=== PATIENT | male | born 1950 | race Caucasian/White ===

== ENCOUNTER 2019-02-22 12:38 | Outpatient (CLI) | payer MEDICARE, SELFPAY ==
--- NOTE | 2019-02-22 12:41 | DI.RAD.S_ITS ---
PROCEDURE: PAIN SI JOINT INJECTION INDICATIONS: JOINT DERANGEMENT FINDINGS: Fluoroscopic spot filming was performed to verify placement of spinal needles at the right SI joint level(s), as labeled on the films. Appropriate location(s) of the needle tip(s) was confirmed by injection of iodinated contrast. IMPRESSION: Fluoroscopy for pain management. Dictated by: Mica Grimaldo M.D. on 02/22/2019 at 13:45 Approved by: Mica Grimaldo M.D. on 02/22/2019 at 13:46
[2019-02-22 12:48] VITALS: BP 142/88; PULSE 65; RESP 16; TEMP 36.4; O2SAT 99
[2019-02-22 13:09] VITALS: BP 156/87; PULSE 70; RESP 18; O2SAT 100
[2019-02-22] MEDS: IOPAMIDOL 15 ML VIAL 3 ML INJ (13:09)
[2019-02-22] MEDS: BETAMETHASONE 30 MG/5 ML MDV 12 MG INJ (13:09)
[2019-02-22] MEDS: BUPIVACAINE 0.5% (PF) VIAL 2 ML INJ (13:09)
[2019-02-22 13:14] VITALS: BP 160/81; RESP 16; O2SAT 100
--- NOTE | 2019-02-22 13:23 | P.PCN_ITS ---
Procedures Date/Time Date of procedure: 02/22/19 Time of procedure: 13:24 General Procedure description: PREOP Dx: Sacroiliac joint pain/DJD POST OP DX: Sacroiliac Joint Pain/DJD Procedures: Fluoroscopic guided contrast controlled right sacroiliac joint injection Physician: Morgan Buck D.O. Indications: Genaro is referred by Dr. Todd for treatment of right sacroiliac joint DJD Description of procedure Fluoroscopic guided, contrast controlled right sacroiliac joint injection Following review of allergies and review of potential side effects and complications, including, but not necessarily limited to, infection, allergic reaction, local tissue breakdown, temporary as well as permanent nerve injury, paralysis, stroke and possible , the patient indicated that they understood and agreed to proceed. An informed consent was signed by the patient, witnessed by a nurse, and placed in the patient's chart. Additionally, other treatment options including modalities, medications, and physical therapy were reviewed with the patient. After review of previous anaesthesic history and IV conscious sedation the patient was deemed safe to proceed with todays procedure with IV conscious sedation as ASA class II designation. Safety time-out was performed to confirm patient ID, procedure to be performed and site of procedure. IV sedation was deemed unnecessary and thus not administered during the course of the procedure while the patient remained responsive to all verbal commands In the prone position following sterile prep and drape of the pelvic region, the hyper lucency on in the inferior aspect of the sacroiliac joint was identified fluoroscopically the skin was anesthetized be a 25 gauge 1 eventual with approximately 2 cc of 1% lidocaine solution. At this point, a 22 gauge 3 in spinal needle was atraumatically introduced and advanced under fluoroscopic guidance into the inferior aspect of the right sacroiliac joint. Following negative aspiration, approximately 0.3cc of Isovue-300 was injected confirming intra-articular placement without vascular uptake. Radiographic data, including multiple fluoroscopic views of the pelvis, reveals a spinal needle in the sacroiliac joint hyper lucent zone. Subsequent view show flow contrast tear superiorly and inferiorly within the joint capsule without vascular intrathecal uptake. At this point a total of 1cc or 0.5% Marcaine was combined with 1cc of 6mg of betamethasone was injected without incident. The procedure tolerated the procedure well without signs or symptoms of complications prior to transfer to the recovery area continued monitoring w ithout incident. The patient was then transferred to the recovery area with a bur observed for an appropriate time after the injection. The patient reverted a vas score of 7 prior to the procedure and postprocedure vas of 1. Total fluoroscopy time: 5.7 sec Total conscious sedation time: 0 min Postop instructions The patient was provided with a pain like to continue to record the patient's response to the target specific procedure prior to the patient's follow-up visit with the referring physician. Additionally, specific post injection care instructions and a contact number to our office were provided if concerns arise regarding the possible complications associated with procedure are suspected. Morgan Buck D.O. Complications: none
[2019-02-22 13:24] VITALS: BP 172/88; PULSE 73; RESP 16; O2SAT 100
[2019-02-22 13:29] VITALS: BP 152/80; PULSE 69; RESP 16; O2SAT 98
--- NOTE | 2019-02-22 13:31 | PC.NURSE ---
NO SEDATION MEDS GIVEN DURING PROCEDURE, PT A&OX4, VSS, AT BASELINE NEUROLOGICALLY, PHYSICALLY AND DENIES CONCERNS.
--- NOTE | 2019-02-22 14:08 | PC.NURSE ---
Post procedure transfer note: Late entry--Patient tolerated procedure well without sedation. VSS throughout. Able to sit up and transfer to /c without assistance. Handoff report given to Prudencio miguel RN. Pain level 0/10
== END 2019-02-22 13:32 | disposition home or self-care (01) ==
PROVIDERS: Family Provider Student in an Organized Health Care Education/Training Program; PCP Student in an Organized Health Care Education/Training Program; Visit Provider Physical Medicine & Rehabilitation
DX: M53.3 Sacrococcygeal disorders, not elsewhere classified (principal); M47.898 Other spondylosis, sacral and sacrococcygeal region
CPT/HCPCS: 27096; J0702

== ENCOUNTER → 2019-08-29 13:11 | Outpatient (CLI) | payer MEDICARE, SELFPAY ==
--- NOTE | 2019-08-29 13:14 | DI.RAD.S_ITS ---
PROCEDURE: XR KNEE RT 3V INDICATIONS: right knee pain TECHNIQUE: 3 views of the knee were acquired. COMPARISON: None. FINDINGS: Bones: No fractures or dislocations. There is a total right knee arthroplasty, showing no evidence of device loosening or disruption. No suspicious bony lesions. Soft tissues: No joint effusion. No suspicious soft tissue calcifications. IMPRESSION: Normal appearance of right total knee arthroplasty. Dictated by: Geovanni Carter M.D. on 08/29/2019 at 14:08 Approved by: Geovanni Carter M.D. on 08/29/2019 at 14:09
--- NOTE | 2019-08-29 19:33 | DI.NM.S_ITS ---
DATE OF SERVICE: 08/29/2019 PROCEDURE: Exercise stress test. INDICATION: Chest pain and shortness of breath. EXERCISE STRESS TEST: The patient walked on Joe protocol for 9 minutes 26 seconds, achieved 84 percent of target heart rate, normal blood pressure response, 10.1 METS of workload and functional aerobic impairment -24 percent. Baseline rhythm was sinus. During stress, there were no convincing ischemic changes. There was nonspecific upsloping ST depression. Around 7 minutes and 36 seconds into the exercise, the patient had six-beat runs of wide QRS tachycardia, which appears to be nonsustained ventricular tachycardia, rate about 150. Has some intermittent PVCs. In recovery, the patient developed PACs and some PVCs without any sustained ventricular tachycardia or supraventricular tachycardia. No chest pain or shortness of breath. CONCLUSION: Exercise stress test, which is mildly submaximal, as patient achieved 84 percent of target heart rate, negative for inducible ischemia. Normal hemodynamic response. Excellent exercise capacity. Functional aerobic impairment -26 percent. The patient has one six-beat run of nonsustained ventricular tachycardia, close to the peak exercise. In recovery, some premature atrial contractions, as well as some premature ventricular contractions, seen without any sustained ventricular tachycardia or supraventricular tachycardia. No anginal symptoms. Genaro Wilson - SYLVIA/prisca/vi doc#: [id number]/job#: [id number] dd: 08/29/2019 16:46:00 dt: 08/29/2019 19:25:00 DICTATING /COPIES TO: Rowan Marlow MD COPIES MNE: DWAINE;
== END ==
PROVIDERS: Family Provider Student in an Organized Health Care Education/Training Program; PCP Student in an Organized Health Care Education/Training Program; Referring Provider Student in an Organized Health Care Education/Training Program; Visit Provider Student in an Organized Health Care Education/Training Program
DX: R07.9 Chest pain, unspecified (principal); R06.02 Shortness of breath; R06.09 Other forms of dyspnea; M25.561 Pain in right knee; R26.9 Unspecified abnormalities of gait and mobility; Z96.651 Presence of right artificial knee joint
CPT/HCPCS: 73562; 93017

== ENCOUNTER → 2019-11-23 12:50 | Outpatient (CLI) | payer MEDICARE, SELFPAY ==
--- NOTE | 2019-11-23 12:53 | DI.RAD.S_ITS ---
PROCEDURE: XR SHOULDER RT MIN 2V INDICATIONS: right shoulder pain TECHNIQUE: 3 views of the shoulder were acquired. COMPARISON: None. FINDINGS: Bones: No fractures or dislocations. There are degenerative changes of the acromioclavicular joint and glenohumeral joint. Coracoclavicular and acromioclavicular intervals are maintained. Degenerative subchondral cysts noted over the right humeral head. No suspicious bony lesions. Visualized ribs appear intact. Soft tissues: No suspicious soft tissue calcifications. IMPRESSION: Right shoulder without acute fracture or malalignment. Mild degenerative changes of the right acromioclavicular and glenohumeral joints. Dictated by: Trey Ash M.D. on 11/23/2019 at 17:07 Approved by: Trey Ash M.D. on 11/23/2019 at 17:09
== END ==
PROVIDERS: Family Provider Student in an Organized Health Care Education/Training Program; PCP Student in an Organized Health Care Education/Training Program; Referring Provider Physical Medicine & Rehabilitation; Visit Provider Physical Medicine & Rehabilitation
DX: M19.011 Primary osteoarthritis, right shoulder (principal); M25.511 Pain in right shoulder; M65.30 Trigger finger, unspecified finger; M19.041 Primary osteoarthritis, right hand; Z96.651 Presence of right artificial knee joint
CPT/HCPCS: 20550; 73030; 99214; J3301

== ENCOUNTER → 2021-10-29 11:44 | Outpatient (CLI) | payer MEDICARE, SELFPAY | PROVIDERS: Family Provider Student in an Organized Health Care Education/Training Program; PCP Student in an Organized Health Care Education/Training Program; Referring Provider Ophthalmology; Visit Provider Ophthalmology | DX: H10.013 Acute follicular conjunctivitis, bilateral (principal) | CPT/HCPCS: 87070; 87205 ==

== ENCOUNTER → 2022-04-09 14:02 | Outpatient (CLI) | payer MEDICARE, SELFPAY ==
--- NOTE | 2022-04-09 14:07 | DI.RAD.S_ITS ---
PROCEDURE: XR SHOULDER RT MIN 2V INDICATIONS: Right shoulder impingement TECHNIQUE: 3 views of the shoulder were acquired. COMPARISON: [facility], CR, XR SHOULDER RT MIN 2V, 11/23/2019, 12:49. FINDINGS: Bones: No fractures or dislocations. No suspicious bony lesions. Mild degenerative changes are present at the acromioclavicular and glenohumeral joint. Degenerative changes are present at the insertion of the rotator cuff. Findings are unchanged from November 23, 2019. Visualized ribs appear intact. Soft tissues: No suspicious soft tissue calcifications. IMPRESSION: Mild degenerative change, stable. Dictated by: Aurora Elizabeth M.D. on 04/09/2022 at 15:05 Approved by: Aurora Elizabeth M.D. on 04/09/2022 at 15:05
== END ==
PROVIDERS: Family Provider Student in an Organized Health Care Education/Training Program; PCP Student in an Organized Health Care Education/Training Program; Referring Provider Physical Medicine & Rehabilitation; Visit Provider Physical Medicine & Rehabilitation
DX: M75.41 Impingement syndrome of right shoulder (principal); M65.331 Trigger finger, right middle finger
CPT/HCPCS: 20611; 73030; 99214; J1040

== ENCOUNTER → 2022-07-17 07:41 | Outpatient (CLI) | payer MEDICARE, SELFPAY ==
--- NOTE | 2022-07-17 | DI.NM.S_ITS ---
PROCEDURE: NM EXERCISE TREADMILL NON NUC COMPARISON: None. INDICATIONS: angina pectoris FINDINGS: Rest ECG sinus bradycardia 53 bpm. Joe protocol 3:54, maximum heart rate 93 bpm (63% of peak predicted), maximum blood pressure 160/84, 7.0 METS, KIMO +33%. Stress ECG sinus rhythm, no ST segment changes or arrhythmias. The patient did not complain of exercise-induced chest pain. He was unable to keep up with the treadmill due to leg fatigue prompting early termination. IMPRESSION: Equivocal test. No evidence of exercise-induced ischemia at submaximal heart rate. Normal hemodynamic response. Dictated by: Alisha Cheeam D.O. on 07/17/2022 at 16:55 Approved by: Alisha Cheema D.O. on 07/17/2022 at 16:58
== END ==
PROVIDERS: Family Provider Student in an Organized Health Care Education/Training Program; PCP Student in an Organized Health Care Education/Training Program; Referring Provider Student in an Organized Health Care Education/Training Program; Visit Provider Student in an Organized Health Care Education/Training Program
DX: I20.8 Other forms of angina pectoris (principal)
CPT/HCPCS: 93017

== ENCOUNTER 2022-09-03 14:01 | Day surgery (SDC) | payer MEDICARE, SELFPAY ==
[2022-09-02 12:41] VITALS: BMI 24.3
[2022-09-03] MEDS: LACTATED RINGERS 1,000 ML 200 ML IV (14:43)
[2022-09-03 14:47] VITALS: BMI 24.3
[2022-09-03 14:56] VITALS: BP 141/91; PULSE 78; RESP 18; TEMP 36.6; O2SAT 98
--- NOTE | 2022-09-03 15:12 | PM.HP.1 ---
History of Present Illness History of Present Illness Date Patient Seen: 09/03/22 Time Patient Seen: 15:12 Chief complaint: Colonoscopy Narrative: 71-year-old man with longstanding hemorrhoid disease here for hemorrhoidal banding under anesthesia. Despite conservative measures his hemorrhoid disease continues to cause him significant discomfort. 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 of right SI joint DJD of right shoulder Hemorrhoid History of CVA (cerebrovascular accident) without residual deficits History of dysuria Impingement syndrome of right shoulder Lower urinary tract symptoms Prostatitis, acute Prostatitis, chronic PUD (peptic ulcer disease) Sacral dysfunction Trigger finger Surgical History History of hernia surgery History of knee replacement History of right knee joint replacement History of shoulder replacement Hx of vasectomy Family History Father Heart disease Adenocarcinoma Social History marital status: unmarried,single household members: significant other lives independently: Yes occupational status: previously employed Smoking Status: Never smoker alcohol intake: never substance use type: does not use Meds Home Medications and Allergies Home Medications Medication Instructions Recorded Confirmed Type acetaminophen 500 mg tablet 1,000 mg PO Q6H PRN Pain (Scale 01/24/09/03/22 History (Tylenol Extra Strength) Score 4-6) meloxicam 7.5 mg tablet 7.5 mg PO DAILY #60 tabs 12/18/21 09/03/22 Rx Allergies Allergy/AdvReac Type Severity Reaction Status Date / Time No Known Drug Allergies Allergy Verified 09/03/22 14:42 Exam Vital Signs (past 8 hours): - 09/03/22 14:56 Temperature 97.8 F Pulse Rate 78 Respiratory Rate 18 Blood Pressure 141/91 H Pulse Oximetry 98 Oxygen Delivery Method Room Air Oxygen Delivery Method Room Air Narrative Exam Narrative: General adult man alert oriented no acute distress Abdomen soft nontender nondistended Assessment & Plan Assessment and plan (1) Hemorrhoid: Problem details: Painful Qualifiers: Hemorrhoid type: other Qualified Code(s): K64.8 - Other hemorrhoids Status: Acute Assessment & Plan narrative: 71-year-old man with chronic grade 2 internal hemorrhoids here for hemorrhoidal banding under anesthesia. Overview of the procedure discussed with the patient. Procedural risks including hemorrhage, pain, recurrent disease were discussed. Questions have been answered he is in agreement with this plan. He provides his written and verbal consent to proceed.
[2022-09-03 15:30] VITALS: BP 102/60; PULSE 70; RESP 14; TEMP 36.3; O2SAT 97
--- NOTE | 2022-09-03 15:34 | PM.OP.1 ---
Operative Date/Time/Diagnoses Date of procedure: 09/03/22 Time of procedure: 15:34 Pre-op diagnosis: Grade 2 internal hemorrhoids Post-op diagnosis: same Procedure & Clinicians Procedure: Hemorrhoidal banding under anesthesia Same procedure as scheduled: Yes Indications: 71-year-old man with symptomatic internal hemorrhoids who has not responded to conservative measures here for banding Surgeon: Xander Roy Click Yes if Unassisted: Yes Anesthesia Type: General Operative Notes Findings: Left lateral, right anterior and right posterior grade 2 internal hemorrhoids. Specimen(s): none sent Estimated Blood Loss (mL): 0 Procedure in detail: Patient was brought to the operating room placed in the left lateral decubitus position. Anesthesia was induced and he was appropriately sedated. Time-out was performed. A lubricated anal speculum was then placed into the rectum and a general inspection was made. He had 3 primary columns of hemorrhoidal tissue from the left lateral right anterior and right posterior pedicles. Each pedicle was grasped with the suction ligater and then doubly banded at its base. He tolerated the procedure and was transferred to recovery in stable condition. Complications: none Post-operative Condition: stable Disposition: same day surgery
[2022-09-03 15:35] VITALS: BP 107/61; PULSE 67; RESP 15; O2SAT 97
[2022-09-03 15:40] VITALS: BP 118/63; PULSE 66; RESP 12; O2SAT 98
[2022-09-03 15:45] VITALS: BP 112/62; PULSE 66; RESP 15; O2SAT 98
[2022-09-03] MEDS: ACETAMINOPHEN 325 MG TABLET 975 MG PO (15:55)
[2022-09-03 16:00] VITALS: BP 111/73; PULSE 65; RESP 12; O2SAT 100
== END 2022-09-03 16:11 | disposition home or self-care (01) ==
PROVIDERS: Family Provider Student in an Organized Health Care Education/Training Program; PCP Student in an Organized Health Care Education/Training Program; Referring Provider Surgery; Visit Provider Surgery
PROC: 0DJD8ZZ Inspection of Lower Intestinal Tract, Via Natural or Artificial Opening Endoscopic (ICD-10-PCS; CPT 45378; principal; 2022-09-03 16:00)
DX: K64.1 Second degree hemorrhoids (principal)
CPT/HCPCS: 46221; J2704

== ENCOUNTER → 2023-01-12 08:53 | Outpatient (CLI) | payer MEDICARE, SELFPAY ==
--- NOTE | 2023-01-12 08:54 | DI.RAD.S_ITS ---
PROCEDURE: XR LUMBAR SPINE MIN 4V INDICATIONS: BACK PAIN TECHNIQUE: 5 views of the lumbar spine were acquired, including bilateral oblique views. COMPARISON: Lumbar radiographs 12/23/2018. FINDINGS: Bones: 5 nonrib-bearing vertebrae are present. No acute osseous abnormalities. There is grade 1 retrolisthesis of L5 on S1 measuring measuring approximately 6 mm, not significantly changed since 12/23/2018. There is mild multilevel disc height loss. Soft tissues: Overlying bowel gas pattern is normal. No suspicious soft tissue calcifications. Oblique images: No pars defects. There is moderate to severe bilateral facet arthropathy at L4-L5 and L5-S1, which has progressed since 12/23/2018. IMPRESSION: No acute osseous abnormality. Grade 1 retrolisthesis of L5 on S1, not significantly changed since 12/23/2018. Bilateral facet arthropathy from L4-S1, progressed since 12/23/2018.. Dictated by: Paty Olvera M.D. on 01/12/2023 at 10:24 Approved by: Paty Olvera M.D. on 01/12/2023 at 10:32
== END ==
PROVIDERS: Family Provider Student in an Organized Health Care Education/Training Program; PCP Student in an Organized Health Care Education/Training Program; Referring Provider Physical Medicine & Rehabilitation; Visit Provider Physical Medicine & Rehabilitation
DX: M43.17 Spondylolisthesis, lumbosacral region (principal); M47.816 Spondylosis without myelopathy or radiculopathy, lumbar region; M47.817 Spondylosis without myelopathy or radiculopathy, lumbosacral region; M54.9 Dorsalgia, unspecified; M75.41 Impingement syndrome of right shoulder; M19.032 Primary osteoarthritis, left wrist; K27.9 Peptic ulcer, site unspecified, unspecified as acute or chronic, without hemorrhage or perforation; R26.9 Unspecified abnormalities of gait and mobility; E85.4 Organ-limited amyloidosis; I43 Cardiomyopathy in diseases classified elsewhere; Z95.5 Presence of coronary angioplasty implant and graft; Z86.73 Personal history of transient ischemic attack (TIA), and cerebral infarction without residual deficits; Z96.651 Presence of right artificial knee joint
CPT/HCPCS: 20611; 72110; 99215; J1040

== ENCOUNTER 2023-01-27 09:41 | Outpatient (CLI) | payer MEDICARE, SELFPAY ==
[2023-01-27] VITALS (7 sets, daily range): BP systolic 144–185; BP diastolic 71–84; PULSE 57–60; RESP 13–18; TEMP 36.4; O2SAT 98–100
--- NOTE | 2023-01-27 10:15 | DI.RAD.S_ITS ---
PROCEDURE: PAIN L/S FACET INJ/BLK 1ST ANURAG INDICATIONS: FACET ARTHROPATHY COMPARISON: [facility], CR, XR LUMBAR SPINE MIN 4V, 01/12/2023, 9:02. FINDINGS: Fluoroscopic spot filming was performed to verify placement of spinal needles at the bilateral L4, L5, and S1 level(s), as labeled on the films. Appropriate location(s) of the needle tip(s) was confirmed by injection of iodinated contrast. IMPRESSION: Intraoperative guidance provided. Dictated by: Rashad Lewis M.D. on 01/27/2023 at 12:37 Approved by: Rashad Lewis M.D. on 01/27/2023 at 12:39
[2023-01-27] MEDS: iopamidoL 15 ML VIAL 3 ML INJ (10:31)
[2023-01-27] MEDS: LIDOCAINE 1% 20 ML 5 ML INJ (10:31)
[2023-01-27] MEDS: BUPIVACAINE 0.5% (PF) 10 ML VIAL 5 ML INJ (10:31)
--- NOTE | 2023-01-27 10:46 | P.PCN_ITS ---
Date/Time/Diagnoses Date of procedure: 01/27/23 Time of procedure: 10:46 Pre-procedure diagnosis: 1. FACET ARTHROPATHY Post-procedure diagnosis: same Procedure Notes Procedure: 1. BILATERAL- L4, L5 and S1 DIAGNOSTIC MB BLOCKS with LA Anesthetic Indications: Genaro is referred by Dr. Todd for treatment of Bilateral Axial LBP. Physician: Morgan Buck Total Fluoroscopy time (seconds): 11 Total sedation minutes: 0 Complications: none Procedure in detail & Post-procedure care: DESCRIPTION OF PROCEDURE Fluoroscopically guided, contrast-controlled bilateral L4, L5 and S1 medial branch blocks with 0.5cc of 0.5% Marcaine. Following review of allergy and review of potential side effects and complications, including, but not necessarily limited to, infection, allergic reaction, local tissue breakdown, nerve injury, paralysis, stroke and possible , the patient indicated that the patient understood and agreed to proceed. An informed consent document was signed by the patient, witnessed by a nurse, and placed in the patient's chart. After review of previous anaesthesic history and IV conscious sedation the patient was deemed safe to proceed with today's procedure with IV conscious lisa tion as ASA class II designation. Safety time-out was performed to confirm patient ID, procedure to be performed and site of procedure. IV sedation was deemed unnecessary and thus not administered by the RN after DO order, titrated to patient comfort during the course of the procedure while the patient remained responsive to all verbal commands In the prone position, following sterile prep and drape of the lumbar region, the right L4, L5 and S1 anatomical location of the medial branch of the dorsal ramus was identified fluoroscopically. Subsequently an anesthetic skin wheal using 1% lidocaine solution was initiated at each of the anatomical spots. Subsequently then a 22-gauge 3.5-inch spinal needle was atraumatically introduced and advanced under fluoroscopic guidance at each of the corresponding sites at the right L4, L5 and S1 MB. After negative aspiration, 0.2cc of Isovue 200 was injected, confirming placement without vascular or intrathecal uptake. Subsequently then 0.5cc of 0.5% Marcaine solution was injected at each of the corresponding sites at the right L4, L5 and S1 medial branch locations. The identical procedure was replicated on the left. The patient tolerated the procedure well without signs or symptoms of complications prior to transfer to the recovery area continued monitoring without incident. Post-procedure, the patient was monitored initiating provocative activities to measure the amount of relief from block of the facetogenic pain. The patient reported a VAS of 7 prior to the procedure and a post-procedure VAS of 1. It has been a pleasure to assist in the diagnostic and therapeutic care of your patient. POST OP INSTRUCTIONS The patient was provided with a Pain Log to complete over the next several hours and subsequent days prior to the patient's follow up with the ordering physician. 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 The patient is aware, was provided, once again, with a Pain Log and will follow up with the referring physician for review and clinical correlation
== END 2023-01-27 10:58 | disposition home or self-care (01) ==
LOC: RAD 09:42
PROVIDERS: Family Provider Student in an Organized Health Care Education/Training Program; PCP Student in an Organized Health Care Education/Training Program; Referring Provider Physical Medicine & Rehabilitation; Visit Provider Physical Medicine & Rehabilitation
DX: M47.816 Spondylosis without myelopathy or radiculopathy, lumbar region (principal); M47.817 Spondylosis without myelopathy or radiculopathy, lumbosacral region
CPT/HCPCS: 64493; 64495

== ENCOUNTER 2023-02-27 14:02 | Day surgery (SDC) | payer MEDICARE, SELFPAY ==
[2023-02-27] VITALS (8 sets, daily range): BP systolic 97–157; BP diastolic 62–76; PULSE 56–63; RESP 11–18; TEMP 36.2; O2SAT 98–99
[2023-02-27 14:52] LABS: Add Manual Diff / Slide Review NO; Basophils Absolute Auto 0 /uL (0-100); Basophils Percent Auto 0.4 % (0-2); Eosinophils Absolute Auto 200 /uL (0-450); Eosinophils Percent Auto 3.9 % (2-4); Hematocrit 41.8 % (41-53); Lymphocytes Absolute Auto 800 /uL (1100-4500); Lymphocytes Percent Auto 12.2 % (25-40); Mean Corpuscular HGB Conc 33.6 % (30-36); Mean Corpuscular Hemoglobin 31.4 PG (26-34); Mean Corpuscular Volume 93.6 fL (80-100); Monocytes Absolute Auto 700 /uL (0-900); Monocytes Percent Auto 11.9 % (3-14); Neutrophils Absolute Auto 4400 /uL (1500-7000); Neutrophils Percent Auto 71.6 % (50-75); Platelet Count 118 X10^3/uL (150-400); Red Blood Cell Count 4.47 X10^6/uL (4.5-5.9); White Blood Cell Count 6.2 X10^3/uL (4.5-11.0)
[2023-02-27] MEDS: LACTATED RINGERS 1,000 ML 42 ML IV (14:52)
--- NOTE | 2023-02-27 16:47 | PM.PREOP ---
Pre-operative Note Interval Note History & Physical reviewed/Exam performed by Physician: Yes Changes to H&P: No
--- NOTE | 2023-02-27 17:20 | PM.OP.1 ---
Operative Date/Time/Diagnoses Date of procedure: 02/27/23 Time of procedure: 17:20 Pre-op diagnosis: Internal hemorrhoids Post-op diagnosis: same Procedure & Clinicians Procedure: Internal hemorrhoidal banding Same procedure as scheduled: Yes Indications: Symptomatic internal hemorrhoids Surgeon: Xander Roy Click Yes if Unassisted: Yes Operative Notes Findings: Grade 1-2 internal hemorrhoids left lateral, right posterior and right anterior positions Specimen(s): none sent Estimated Blood Loss (mL): 5 Procedure in detail: Patient was brought to the procedure room and placed supine on the bed. Procedural sedation was administered by anesthesia after he was placed in the left lateral decubitus position. Time-out performed. Anoscope was inserted and it demonstrated grade 1-2 internal hemorrhoids involving the left lateral right posterior and right anterior pedicles. Each pedicle was grasped with the suction and then doubly ligated at its base. He tolerated the procedure well and was transferred to recovery in stable condition. Complications: none Post-operative Condition: stable Disposition: same day surgery
[2023-02-27] MEDS: ONDANSETRON 4 MG/2 ML INJ IV (17:28)
[2023-02-27] MEDS: ACETAMINOPHEN 325 MG TABLET 975 MG PO (17:31)
== END 2023-02-27 18:38 | disposition home or self-care (01) ==
PROVIDERS: Student in an Organized Health Care Education/Training Program; Family Provider Student in an Organized Health Care Education/Training Program; PCP Student in an Organized Health Care Education/Training Program; Referring Provider Surgery; Visit Provider Surgery
PROC: 0DJD8ZZ Inspection of Lower Intestinal Tract, Via Natural or Artificial Opening Endoscopic (ICD-10-PCS; CPT 45378; principal; 2023-02-27 15:45)
DX: K64.0 First degree hemorrhoids (principal)
CPT/HCPCS: 46221; 36415; 85025; J2405; J2704

== ENCOUNTER → 2023-08-03 15:42 | Outpatient (CLI) | payer MEDICARE, SELFPAY ==
--- NOTE | 2023-08-03 15:46 | DI.RAD.S_ITS ---
PROCEDURE: XR SHOULDER RT MIN 2V INDICATIONS: Right shoulder tendon tear TECHNIQUE: 3 views of the shoulder were acquired. COMPARISON: [facility], CR, XR SHOULDER RT MIN 2V, 04/09/2022, 15:23. FINDINGS: Bones: No acute fracture or dislocation. There is glenohumeral and acromioclavicular joint space narrowing and small humeral osteophytes. The degree of joint space narrowing is slightly increased from the prior study. Multiple small bony erosions are present at the right humeral head, similar to the study dated April 09, 2022. Soft tissues: No suspicious soft tissue calcifications. IMPRESSION: 1. Glenohumeral and acromioclavicular joint space narrowing which is slightly increased from the prior study. 2. Erosive lesions within the humeral head redemonstrated. Differential considerations include erosive arthritis and subchondral cystic changes. Dictated by: Aurora Elizabeth M.D. on 08/03/2023 at 16:55 Approved by: Aurora Elizabeth M.D. on 08/03/2023 at 16:56
--- NOTE | 2023-08-03 15:46 | DI.MRI.S_ITS ---
PROCEDURE: MR SHOULDER RT WO CON INDICATIONS: Right shoulder tendon tear TECHNIQUE: Noncontrast oblique coronal T2 fast spin echo with fat saturation, oblique sagittal T1 spin echo and T2 fast spin echo with fat saturation, axial T1 spin echo and T2 fast spin echo with fat saturation through the shoulder. COMPARISON: [facility], CR, XR SHOULDER RT MIN 2V, 04/09/2022, 15:23. [facility], CR, XR SHOULDER RT MIN 2V, 11/23/2019, 12:49. [facility], CR, XR SHOULDER RT MIN 2V, 08/03/2023, 16:03. FINDINGS: Image quality: Excellent. Rotator cuff: There is full-thickness tear of the infraspinatus tendon with tendon retraction to the musculotendinous junction. There is superimposed infraspinatus muscle strain with an intramuscular hematoma. Moderate supraspinatus and subscapularis tendinosis without high-grade tendon tear. Sagittal images demonstrate mild teres minor muscle atrophy. Bones and bursae: No bone marrow contusions or fractures. [id number] acromioclavicular and glenohumeral joint degeneration. The acromion demonstrates conventional anatomy, without an os acromiale. No pathologic subacromial-subdeltoid or subcoracoid bursal fluid is present. Capsule and soft tissues: Circumferential degenerative tear of the glenoid labrum. There is moderate tendinosis of the intra-articular segment of the long head of the biceps tendon which demonstrates normal location and morphology. The rotator interval appears normal, without fibrosis. The coracohumeral ligament is normal in thickness. IMPRESSION: 1. Full-thickness tear of the infraspinatus tendon and associated infraspinatus muscle strain. There is tendon retraction to the musculotendinous junction. An intramuscular hematoma is present at the infraspinatus musculotendinous junction. 2. Moderate supraspinatus and subscapularis tendinosis without high-grade tendon tear. 3. Mild teres minor muscle atrophy. 4. Moderate tendinosis of the long head of the biceps. 5. [id number]-[id number] acromioclavicular and glenohumeral joint degeneration. 6. Circumferential degenerative tear of the glenoid labrum. Dictated by: Mica Grimaldo M.D. on 08/03/2023 at 20:20 Approved by: Mica Grimaldo M.D. on 08/03/2023 at 20:30
== END ==
PROVIDERS: Family Provider Student in an Organized Health Care Education/Training Program; PCP Student in an Organized Health Care Education/Training Program; Referring Provider Physical Medicine & Rehabilitation; Visit Provider Physical Medicine & Rehabilitation
DX: M75.41 Impingement syndrome of right shoulder (principal); M75.121 Complete rotator cuff tear or rupture of right shoulder, not specified as traumatic; M79.81 Nontraumatic hematoma of soft tissue; M62.511 Muscle wasting and atrophy, not elsewhere classified, right shoulder; M19.011 Primary osteoarthritis, right shoulder; S43.491A Other sprain of right shoulder joint, initial encounter
CPT/HCPCS: 73030; 73221

== ENCOUNTER 2023-08-25 10:36 | Outpatient (CLI) | payer MEDICARE, SELFPAY ==
[2023-08-25] VITALS (14 sets, daily range): BP systolic 141–197; BP diastolic 68–83; PULSE 56–64; RESP 13–20; TEMP 35.7; O2SAT 98–100
--- NOTE | 2023-08-25 11:15 | DI.RAD.S_ITS ---
PROCEDURE: PAIN L/S FACET INJ/BLK 1ST ANURAG INDICATIONS: Bilateral L4-L5 and S1 medial branch block SA COMPARISON: [facility], , PAIN L/S FACET INJ/BLK 1ST ANURAG, 01/27/2023, 11:30. FINDINGS: Fluoroscopic spot filming was performed to verify placement of spinal needles at the bilateral L4, L5 and S1 level(s), as labeled on the films. Appropriate location(s) of the needle tip(s) was confirmed by injection of iodinated contrast. IMPRESSION: Intra procedural examination demonstrating appropriate positions of the needles. Dictated by: Flo Venegas M.D. on 08/25/2023 at 14:26 Approved by: Flo Venegas M.D. on 08/25/2023 at 14:26
[2023-08-25] MEDS: iopamidoL 15 ML VIAL 3 ML INJ (11:22)
[2023-08-25] MEDS: LIDOCAINE 2% INJ MDV 20ML 5 ML INJ (11:23)
[2023-08-25] MEDS: LIDOCAINE 1% 20 ML 5 ML INJ (11:23)
--- NOTE | 2023-08-25 11:42 | PM.PROC.IR.1 ---
Date/Time/Diagnoses Date of procedure: 08/25/23 Time of procedure: 11:42 Pre-procedure diagnosis: 1. FACET ARTHROPATHY Post-procedure diagnosis: same Procedure Notes Procedure: 1. BILATERAL- L4, L5 and S1 DIAGNOSTIC MB BLOCKS with SA Anesthetic Indications: Genaro is referred by Dr. Todd for treatment of Bilateral Axial LBP. Physician: Morgan Buck Total Fluoroscopy time (seconds): 8 Total sedation minutes: 0 Complications: none Procedure in detail & Post-procedure care: DESCRIPTION OF PROCEDURE Fluoroscopically guided, contrast-controlled bilateral L4, L5 and S1 medial branch blocks with 0.5cc of 2% Lidocaine. Following review of allergy and review of potential side effects and complications, including, but not necessarily limited to, infection, allergic reaction, local tissue breakdown, nerve injury, paralysis, stroke and possible , the patient indicated that the patient understood and agreed to proceed. An informed consent document was signed by the patient, witnessed by a nurse, and placed in the patient's chart. After review of previous anaesthesic history and IV conscious sedation the patient was deemed safe to proceed with today's procedure with IV conscious sedation as ASA class II designation. Safety time-out was performed to confirm patient ID, procedure to be performed and site of procedure. IV sedation was not administered by the RN after DO order, titrated to patient comfort during the course of the procedure while the patient remained responsive to all verbal commands In the prone position, following sterile prep and drape of the lumbar region, the right L4, L5 and S1 anatomical location of the medial branch of the dorsal ramus was identified fluoroscopically. Subsequently an anesthetic skin wheal using 1% lidocaine solution was initiated at each of the anatomical spots. Subsequently then a 22-gauge 3.5-inch spinal needle was atraumatically introduced and advanced under fluoroscopic guidance at each of the corresponding sites at the right L4, L5 and S1 MB. After negative aspiration, 0.2cc of Isovue 200 was injected, confirming placement without vascular or intrathecal uptake. Subsequently then 0.5cc of 2% Lidocaine solution was injected at each of the corresponding sites at the right L4, L5 and S1 medial branch locations. The identical procedure was replicated on the left. The patient tolerated the procedure well without signs or symptoms of complications prior to transfer to the recovery area continued monitoring without incident. Post-procedure, the patient was monitored initiating provocative activities to measure the amount of relief from block of the facetogenic pain. The patient reported a VAS of 7 prior to the procedure and a post-procedure VAS of 1. It has been a pleasure to assist in the diagnostic and therapeutic care of your patient. POST OP INSTRUCTIONS The patient was provided with a Pain Log to complete over the next several hours and subsequent days prior to the patient's follow up with the ordering physician. If the patient has office administrative assistant relief to the solution applied, then they may be a candidate for medial branch rhizotomy. The patient is aware, was provided, once again, with a Pain Log and will follow up with the referring physician for review and clinical correlation
--- NOTE | 2023-08-25 11:49 | PC.NURSE ---
Patient stated that he was dizzy upon arrival to the post procedure area. Patient denies any other symptoms.
--- NOTE | 2023-08-25 11:59 | PC.NURSE ---
Patient states that he is still dizzy. Patient placed back on 3 lead ECG and was noted to be in normal Sinus rhythm. Patient denies having any other symptoms.
--- NOTE | 2023-08-25 12:07 | PC.NURSE ---
Patient is still feeling a dizzy, but he stated that he his beginning to feel better. Patient declined anything to drink or eat multiple times since being in the recovery area. Dr. Buck is aware of patient's dizziness. Patient also declined offer of anything to eat or drink from Dr. Buck shortly after the patient arrived in the recovery area.
--- NOTE | 2023-08-25 13:00 | PC.NURSE ---
Dr. Buck assessed patient and stated the patient can be discharged when he is ready. Patient states that he is feeling better and is no longer dizzy. Patient discharged to his .
== END 2023-08-25 13:02 | disposition home or self-care (01) ==
PROVIDERS: Family Provider Student in an Organized Health Care Education/Training Program; PCP Student in an Organized Health Care Education/Training Program; Referring Provider Physical Medicine & Rehabilitation; Visit Provider Physical Medicine & Rehabilitation
DX: M47.816 Spondylosis without myelopathy or radiculopathy, lumbar region (principal); M47.817 Spondylosis without myelopathy or radiculopathy, lumbosacral region
CPT/HCPCS: 64493; 64494; 99152

== ENCOUNTER 2024-01-12 10:04 | Outpatient (CLI) | payer MEDICARE, SELFPAY ==
[2024-01-12] VITALS (12 sets, daily range): BP systolic 131–182; BP diastolic 66–85; PULSE 55–64; RESP 10–18; TEMP 36.6; O2SAT 98–100
--- NOTE | 2024-01-12 10:05 | DI.RAD.S_ITS ---
PROCEDURE: PAIN L/S MED/LAT N RFA BILAT INDICATIONS: Bilteral L4, L5 and S1 MB RFA COMPARISON: None. FINDINGS/IMPRESSION: Fluoroscopic spot filming was performed to verify placement of spinal needles at the bilateral L4, L5, and S1 level(s), as labeled on the films. Appropriate location(s) of the needle tip(s) was confirmed by injection of iodinated contrast. Dictated by: Trey Ash M.D. on 01/12/2024 at 21:24 Approved by: Trey Ash M.D. on 01/12/2024 at 21:25
[2024-01-12] MEDS: MIDAZOLAM 2 MG/2 ML VIAL 1 MG IV ×2 (11:51→11:55)
[2024-01-12] MEDS: LIDOCAINE 1% 20 ML 5 ML INJ (11:57)
[2024-01-12] MEDS: BUPIVACAINE 0.5% (PF) 10 ML VIAL 5 ML INJ (11:58)
--- NOTE | 2024-01-12 12:30 | P.PCN_ITS ---
Date/Time/Diagnoses Date of procedure: 01/12/24 Time of procedure: 12:30 Pre-procedure diagnosis: 1. RECALCITRANT FACET ARTHROPATHY Post-procedure diagnosis: same Procedure Notes Procedure: 1. BILATERAL L4 AND L5 MEDIAL BRANCH RADIOFREQUENCY NEUROTOMY AND S1 DORSAL RAMUS BRANCH RADIOFREQUENCY NEUROTOMY Indications: Genaro is referred by Dr. Todd for treatment of facet arthropathy. Physician: Morgan Buck Total Fluoroscopy time (seconds): 16 Total sedation minutes: 34 Complications: none Procedure in detail & Post-procedure care: DESCRIPTION OF PROCEDURE Bilateral L4 and L5 medial branch radiofrequency neurotomy and bilateral S1 dorsal ramus radiofrequency neurotomy under fluoroscopy with conscious sedation. The patient is well known to this clinic having undergone previous facet injections with good but temporary relief. The patient has experienced appropriate, concordant relief with previous facet and median branch blocks but the patient's pain has been recalcitrant to further conservative measures. Therefore, based upon the patient's relief and persistent symptoms, the patient is considered an appropriate candidate for facet rhizotomy. All of the patient's questions regarding the risks versus benefits of the procedure, including, but not limited to, bleeding, infection, temporary as well as lasting nerve injury, paralysis, stroke, and , as well treatment alternatives were answered to satisfaction. After obtaining informed consent, denial of pertinent drug allergies, as well as being made aware of the potential risks of bleeding, infection, spinal cord trauma, paralysis, temporary and permanent nerve damage, seizure, stroke, and possible , the patient was brought to the fluoroscopy suite and positioned prone on the fluoroscopy table. The lumbar region was prepped in usual sterile fashion and covered with a fenestrated drape in the usual sterile fashion. Appropriate monitors applied including pulse oximeter, pulse, and blood pressure for regular monitoring throughout the procedure. After review of previous anaesthesic history and IV conscious sedation the patient was deemed safe to proceed with today's procedure with IV conscious sedation as ASA class II designation. Safety time-out was performed to confirm patient ID, procedure to be performed and site of procedure. IV sedation was accomplished with a combination of 2mg of Versed administered by the RN after DO order, titrated to patient comfort during the course of the procedure while the patient remained responsive to all verbal commands. After local infiltration using 1% lidocaine, under fluoroscopic guidance, a 10- cm RF insulated needle with a 10-mm active tip was positioned parallel to the junction of the right sacral ala and the superior articulating process where the S1 dorsal ramus resides. Needle placement was confirmed with motor stimulation of .5v on the right which produced local stimulation without radicular component. The stimulation was then increased to 2v with, once again, only local multifidus stimulation without radicular component. The needle was then removed and the identical procedure was performed along the length of the right L5 medial branch with motor stimulation at .7v on the right. The identical procedure was once again performed along the length of the right L4 medial branch with motor stimulation of .5v on the right. The medial branches were then anesthetised with 0.5% Marcaine. This was then followed by two discreet lesions performed at 80 degrees Celsius for 90 seconds each. The identical procedure was repeated on the left. The patient tolerated the procedure well without signs or symptoms of complications prior to transfer to the recovery area continued monitoring without incident. The patient was then transferred to the recovery area where they were observed for an appropriate period of time after the injection. The patient reported a VAS score of 9 prior to the procedure and a post-procedure VAS of 0. POST OP INSTRUCTIONS The patient was provided a Pain Log to continue to record the patient's response to the target-specific procedure prior to the patient's follow-up visit with the referring physician. Additionally, specific post-injection care instructions and a contact number to our office were provided if concerns arise regarding possible complications associated with the procedure are suspected.
== END 2024-01-12 12:48 | disposition home or self-care (01) ==
PROVIDERS: Family Provider Student in an Organized Health Care Education/Training Program; PCP Student in an Organized Health Care Education/Training Program; Referring Provider Physical Medicine & Rehabilitation; Visit Provider Physical Medicine & Rehabilitation
DX: M47.816 Spondylosis without myelopathy or radiculopathy, lumbar region (principal); M47.817 Spondylosis without myelopathy or radiculopathy, lumbosacral region
CPT/HCPCS: 64635; 64636; 99152; 99153; J2250

== ENCOUNTER → 2024-03-07 08:02 | Outpatient (CLI) | payer MEDICARE, SELFPAY ==
--- NOTE | 2024-03-07 08:04 | DI.RAD.S_ITS ---
PROCEDURE: XR LUMBAR SPINE MIN 4V INDICATIONS: BACK PAIN TECHNIQUE: 5 views of the lumbar spine were acquired, including bilateral oblique views. COMPARISON: [facility], , XR LUMBAR SPINE MIN 4V, 01/12/2023, 9:02. FINDINGS: Five non rib-bearing lumbar vertebrae are present. Mild osseous demineralization. The vertebral body heights are preserved. The lumbar lordosis is preserved. 3 mm retrolisthesis of L5 on S1. Multilevel facet arthropathy, severe at L4-L5 and L5-S1. Mild intervertebral disc height loss at L5-S1. The other intervertebral disc heights are preserved. Aortic vascular calcifications. IMPRESSION: Multilevel lumbar osteoarthrosis, most conspicuous at L4-L5 and L5-S1. Dictated by: Bashir Childress M.D. on 03/07/2024 at 13:22 Approved by: Bashir Childress M.D. on 03/07/2024 at 13:24
== END ==
PROVIDERS: Family Provider Student in an Organized Health Care Education/Training Program; PCP Student in an Organized Health Care Education/Training Program; Referring Provider Physical Medicine & Rehabilitation; Visit Provider Physical Medicine & Rehabilitation
DX: M47.816 Spondylosis without myelopathy or radiculopathy, lumbar region (principal); M47.817 Spondylosis without myelopathy or radiculopathy, lumbosacral region; M19.032 Primary osteoarthritis, left wrist; M19.041 Primary osteoarthritis, right hand; M19.042 Primary osteoarthritis, left hand; M24.9 Joint derangement, unspecified; M53.3 Sacrococcygeal disorders, not elsewhere classified; M19.011 Primary osteoarthritis, right shoulder; R26.9 Unspecified abnormalities of gait and mobility; Z95.5 Presence of coronary angioplasty implant and graft
CPT/HCPCS: 72110; 99214